=== PATIENT | female | born 1955 | race Caucasian/White ===

== ENCOUNTER 2017-02-13 17:59 | Emergency (ER) | payer OTHER ==
[~2017-02-13] VITALS: Ht 152.4 cm; Wt 60.0 kg
[2017-02-13 18:02] VITALS: Ht 152.4 cm; Wt 60.0 kg
[2017-02-13] MEDS ORDERED: MUPI22OI2 TOP (19:05)
[2017-02-13] MEDS ORDERED: CEPH-443 PO (19:05)
[2017-02-13] MEDS ORDERED: TRAM50TA2 PO (19:05)
--- NOTE | 2017-02-13 19:10 | ERD ---
ER Documentation Chief Complaint Date/Time DATE: 02/13/17 TIME: 19:07 Chief Complaint pt bib self with c/o left foot pain since Thursday HPI Patient is a 61-year-old nondiabetic female who presents with pain in her left foot specifically between her second and third toes secondary to a blister that she has had since Thursday that she popped. She has been taking ibuprofen to control the pain however she continues to have moderate throbbing pain at the site. She is ambulatory. Denies any trauma. States she felt like she had a fever at home but she did not take any medication. Denies any bleeding or drainage. Denies any numbness or tingling. ROS All systems reviewed and are negative except as per history of present illness. Medications Home Meds Active Scripts Cephalexin* (Keflex*) 500 Mg Capsule, 500 MG PO QID, #28 CAP Prov:FRANKY BOWER PA-C 02/13/17 Mupirocin* (Bactroban*) 2% -22 Gram Oint...g., 1 APPLIC TOP BID, #1 TUB SITE OF APPLICATION: Prov:FRANKY BOWER PA-C 02/13/17 Tramadol HCl (Tramadol HCl) 50 Mg Tablet, 50 MG PO BID, #20 TAB Prov:FRANKY BOWER PA-C 02/13/17 Allergies Allergies: Coded Allergies: No Known Allergy (Unverified , 02/13/17) PMhx/Soc Medical and Surgical Hx: pt denies Medical Hx History of Surgery: Yes (umbilical hernia x2) Anesthesia Reaction: No Hx Neurological Disorder: No Hx Respiratory Disorders: No Hx Cardiac Disorders: No Hx Psychiatric Problems: No Hx Miscellaneous Medical Probl: No Hx Alcohol Use: No Hx Substance Use: No Hx Tobacco Use: No Smoking Status: Never smoker FmHx Family History: No diabetes Physical Exam Vitals Vital Signs Date Time Temp Pulse Resp B/P Pulse Ox O2 Delivery O2 Flow Rate FiO2 02/13/17 18:02 97.3 87 18 129/71 99 Physical Exam General: well developed, well nourished, alert, nontoxic, no distress Head: normocephalic, atraumatic Neck: Supple, nontender, no lymphadenopathy, no midline tenderness Respiratory: Clear to auscaultation bilaterally, speaks in full sentences, no use of accesory muscles or labored breathing, no rales, ronchi, or wheezing Cardiovascular: RRR, No murmurs Extremities: moving all extremities normally, normal gait, no edema Skin: Between the second and third dorsal webspaces on left foot there is a healing blister, there is no surrounding erythema, bleeding, or drainage, sensation to light touch intact, capillary refill less than 2 seconds, no bony abnormalities, pedal pulse 2+, ambulatory Procedures/MDM Patient has a healing blister on the toe that is painful. Vital signs are normal and it does not appear to be infected at this time however I will treat her prophylactically with Keflex and Bactroban cream and gave her prescription for tramadol for pain. No evidence of cellulitis or abscess formation at this time. Recommended this patient follow up with her primary care doctor within 48 hours or return to the emergency room for any worsening of symptoms. However this time I do believe there is suitable for outpatient management. I answered all their questions and they agreed with the plan and were discharged home. Departure Diagnosis: Primary Impression: Blister Condition: Stable Patient Instructions: Blister Additional Instructions: Llame al doctor LUCAS y jono marcie TAE PARA DENTRO DE 1-2 HART.Dgale a la secretaria que nosotros le instruimos hacer esta tae.Avise o llame si beckett condicin se empeora antes de la tae. Regresa aqui si peor o no mejor. FRANKY BOWER PA-C Feb 13, 2017 19:09
== END 2017-02-13 19:13 | disposition home or self-care (01) ==
LOC: FTE 17:59
DX: R23.8 Other skin changes (principal)
CPT/HCPCS: 99284